=== PATIENT | male | born 1945 | race Caucasian/White ===

== ENCOUNTER 2024-05-11 10:09 | Outpatient (CLI) | payer MEDICARE, OTHER | END 2024-05-11 10:10 | disposition home or self-care (01) | LOC: CSHCT 10:09 | PROVIDERS: ATTEND Urology | DX: Z01.818 Encounter for other preprocedural examination (principal); C61 Malignant neoplasm of prostate; Z96.89 Presence of other specified functional implants | CPT/HCPCS: 72192 ==